=== PATIENT | female | born 1990 | race African-American/Black ===

== ENCOUNTER 2024-01-09 10:13 | Emergency (ER) | payer MEDICAID, OTHER ==
[~2024-01-09] VITALS: Ht 162.6 cm; Wt 82.0 kg
[~2024-01-09 10:13] MED LIST: PREN-88
[2024-01-09 10:15] VITALS: TEMP 98.2; O2SAT 96
[2024-01-09 11:26] LABS: BASOPHILS % 0.3 % (0.0-2.0); EOSINOPHILS % 1.4 % (0.0-5.0); HEMATOCRIT. 36.2 % (36.0-48.0); HEMOGLOBIN. 11.9 g/dL (12.0-16.0); LYMPHOCYTES % 14.9 % (20.0-50.0); MEAN CORPUSCULAR HEMOGLOBIN 28.4 pg (28.0-32.0); MEAN CORPUSCULAR HGB CONC 32.9 g/dL (31.0-37.0); MEAN CORPUSCULAR VOLUME 86.3 fL (81.0-99.0); MEAN PLATELET VOLUME 8.7 fl (7.4-10.4); MONOCYTES % 3.9 % (2.0-8.0); NEUTROPHILS % 79.5 % (40.0-76.0); PLATELET 277 x1000/uL (130-400); RED BLOOD CELL COUNT 4.19 mill/uL (4.2-5.4); RED CELL DISTRIBUTION WIDTH 13.9 % (11.6-14.6); WHITE BLOOD COUNT 11.4 x1000/uL (4.5-11.0)
[2024-01-09 11:27] LABS: CLARITY URINE CLEAR (CLEAR); COLOR URINE ORANGE (YELLOW); GLUCOSE URINE NEGATIVE (NEGATIVE); KETONES URINE NEGATIVE (NEGATIVE); LEUKOCYTE ESTERASE URINE TRACE (NEGATIVE); NITRITE URINE NEGATIVE (NEGATIVE); OCCULT BLOOD URINE 3+ (NEGATIVE); PROTEIN URINE 1+ (NEGATIVE); SPECIFIC GRAVITY URINE 1.018 (1.005-1.030)
[2024-01-09 11:35] LABS: CARBON DIOXIDE 20 mEq/L (21-32); CHLORIDE 106 mEq/L (98-107); POTASSIUM 3.5 mEq/L (3.5-5.1); SODIUM 136 mEq/L (136-145)
[2024-01-09 11:37] LABS: CALCIUM 9.4 mg/dL (8.7-10.4)
[2024-01-09 11:40] LABS: HCG SCREEN POSITIVE
[2024-01-09 11:42] LABS: CREATININE 0.7 mg/dL (0.6-1.0); GLUCOSE 150 mg/dL (70-105)
[2024-01-09 12:39] LABS: B-HCG QUANTITATIVE 4319 mIU/mL (<3); UREA NITROGEN BLOOD < 5 mg/dL (9-23)
[2024-01-09 12:52] LABS: RBC URINE TNTC /hpf (0-2); SQUAMOUS EPITHELIAL CELL URINE 1+ /lpf (RARE/1+)
[2024-01-09 12:53] LABS: BACTERIA URINE TRACE; WBC URINE 0-2 /hpf (0-2)
[2024-01-09 12:54] LABS: MUCUS URINE 2+ /lpf (< = 2+)
[2024-01-09] MEDS ORDERED: CEPH500C2 MT (16:02)
[2024-01-09 16:41] VITALS: BP 120/70; PULSE 80; RESP 15
== END 2024-01-09 16:42 | disposition home or self-care (01) ==
LOC: ER 10:27
DX: O03.9 Complete or unspecified spontaneous abortion without complication (principal); O26.891 Other specified pregnancy related conditions, first trimester; R10.9 Unspecified abdominal pain; Z3A.10 10 weeks gestation of pregnancy
CPT/HCPCS: 36415; 76801; 80048; 81003; 81025; 84702; 84703; 85025; 86850; 86900; 99284

== ENCOUNTER 2024-01-09 21:14 | Inpatient (IN) | payer MEDICAID ==
[~2024-01-09] VITALS: Ht 162.6 cm; Wt 99.3 kg
[~2024-01-09 21:14] MED LIST changes: +CEPH500C2 MT
[2024-01-09 22:59] LABS: DIFFERENTIAL COMMENT 1; HEMATOCRIT. 34.3 % (36.0-48.0); HEMOGLOBIN. 11.5 g/dL (12.0-16.0); MEAN CORPUSCULAR HEMOGLOBIN 28.5 pg (28.0-32.0); MEAN CORPUSCULAR HGB CONC 33.3 g/dL (31.0-37.0); MEAN CORPUSCULAR VOLUME 85.3 fL (81.0-99.0); MEAN PLATELET VOLUME 9.1 fl (7.4-10.4); PLATELET 282 x1000/uL (130-400); RED BLOOD CELL COUNT 4.03 mill/uL (4.2-5.4); RED CELL DISTRIBUTION WIDTH 14.1 % (11.6-14.6); WHITE BLOOD COUNT 15.8 x1000/uL (4.5-11.0)
[2024-01-09] MEDS: MORPHINE SULFATE 4 MG/ML INJ (FOR IV/IM USE) IV ONE (23:03)
[2024-01-09] MEDS: METOCLOPRAMIDE HCL 10MG/2ML VIAL IV ONE (23:04)
[2024-01-09 23:05] LABS: CHLORIDE 106 mEq/L (98-107); POTASSIUM 3.8 mEq/L (3.5-5.1); SODIUM 135 mEq/L (136-145)
[2024-01-09 23:06] LABS: CARBON DIOXIDE 23 mEq/L (21-32)
[2024-01-09 23:07] LABS: CALCIUM 9.7 mg/dL (8.7-10.4)
[2024-01-09 23:11] LABS: CREATININE 0.7 mg/dL (0.6-1.0); GLUCOSE 141 mg/dL (70-105)
[2024-01-09 23:13] LABS: ALANINE AMINOTRANSFERASE 12 IU/L (10-49); ALBUMIN 4.4 g/dL (3.2-4.8); ASPARTATE AMINOTRANSFERASE 15 IU/L (<34)
[2024-01-09 23:14] LABS: BILIRUBIN DIRECT 0.2 mg/dL (<=3.0); BILIRUBIN TOTAL 0.5 mg/dL (0.1-1.0); PLATELET ESTIMATE NORMAL; PROTEIN TOTAL 7.1 g/dL (6.0-8.3)
[2024-01-09 23:27] LABS: B-HCG QUANTITATIVE 2807 mIU/mL (<3); UREA NITROGEN BLOOD < 5 mg/dL (9-23)
[2024-01-10] MEDS: MISOPROSTOL 200MCG TABLET PO ONE (01:45)
[2024-01-10] MEDS: MORPHINE SULFATE 4 MG/ML INJ (FOR IV/IM USE) IV ONE (02:20)
[2024-01-10] MEDS: LACTATED RINGERS 1,000 ML IV SCH (02:31)
[2024-01-10 08:00] VITALS: BP 110/58; PULSE 68; RESP 18; TEMP 97.4
[2024-01-10 08:10] VITALS: BP 110/58; PULSE 68; RESP 18; TEMP 97.4
[2024-01-10] MEDS ORDERED: IPRATROPIUM/ALBUTEROL 0.5-3(2.5)MG/3ML NEB HHN PRN (08:15)
[2024-01-10] MEDS ORDERED: ONDANSETRON HCL 4MG/2ML INJ IV PRN (08:15)
[2024-01-10] MEDS ORDERED: CLONIDINE 0.1MG TABLET PO PRN (08:15)
[2024-01-10] MEDS ORDERED: NALOXONE HCL 0.4MG/ML VIAL IV PRN (08:30)
[2024-01-10] MEDS: KETOROLAC 15MG/ML VIAL IV PRN (08:41)
[2024-01-10 12:00] VITALS: BP 111/48; PULSE 69; RESP 18; TEMP 98
[2024-01-10] MEDS: CEFTRIAXONE 1GM/50ML 50 ML IV SCH (12:23)
[2024-01-10] MEDS: SODIUM CHLORIDE 0.9% 1,000 ML IV ONE (12:24)
[2024-01-10 13:04] LABS: CLARITY URINE CLEAR (CLEAR); COLOR URINE ORANGE (YELLOW); GLUCOSE URINE NEGATIVE (NEGATIVE); KETONES URINE NEGATIVE (NEGATIVE); LEUKOCYTE ESTERASE URINE 1+ (NEGATIVE); NITRITE URINE NEGATIVE (NEGATIVE); OCCULT BLOOD URINE 3+ (NEGATIVE); PROTEIN URINE TRACE (NEGATIVE); SPECIFIC GRAVITY URINE 1.012 (1.005-1.030)
[2024-01-10] MEDS: HYDROCODONE/ACETAMINOPHEN 5/325MG TABLET PO PRN (13:21)
[2024-01-10 13:24] LABS: RBC URINE TNTC /hpf (0-2); SQUAMOUS EPITHELIAL CELL URINE 1+ /lpf (RARE/1+)
[2024-01-10 13:25] LABS: BACTERIA URINE 1+; YEAST URINE NONE SEEN
[2024-01-10 16:00] VITALS: BP 100/46; PULSE 65; RESP 18; TEMP 97.9
[2024-01-10] MEDS: DOCUSATE SODIUM 100MG CAPSULE PO PRN (17:16)
[2024-01-10 20:00] VITALS: BP 118/33; PULSE 76; RESP 20; TEMP 97.3
[2024-01-10 22:09] LABS: BASOPHILS % 0.3 % (0.0-2.0); EOSINOPHILS % 1.5 % (0.0-5.0); HEMATOCRIT. 31.9 % (36.0-48.0); HEMOGLOBIN. 10.5 g/dL (12.0-16.0); LYMPHOCYTES % 26.1 % (20.0-50.0); MEAN CORPUSCULAR HEMOGLOBIN 28.5 pg (28.0-32.0); MEAN CORPUSCULAR HGB CONC 32.8 g/dL (31.0-37.0); MEAN CORPUSCULAR VOLUME 86.8 fL (81.0-99.0); MEAN PLATELET VOLUME 9.1 fl (7.4-10.4); MONOCYTES % 4.5 % (2.0-8.0); NEUTROPHILS % 67.6 % (40.0-76.0); PLATELET 246 x1000/uL (130-400); RED BLOOD CELL COUNT 3.68 mill/uL (4.2-5.4); WHITE BLOOD COUNT 9.8 x1000/uL (4.5-11.0)
[2024-01-10] MEDS: ACETAMINOPHEN 325MG TABLET PO PRN (22:16)
[2024-01-11] VITALS: BP 116/44; PULSE 81; RESP 19; TEMP 97.4
[2024-01-11 04:00] VITALS: BP 99/46; PULSE 65; RESP 20; TEMP 95.9
[2024-01-11] MEDS: GUAIFENESIN 200MG/10ML SUGAR FREE UDC PO PRN (05:33)
[2024-01-11 06:21] LABS: BASOPHILS % 0.4 % (0.0-2.0); EOSINOPHILS % 2.2 % (0.0-5.0); HEMATOCRIT. 29.5 % (36.0-48.0); HEMOGLOBIN. 9.7 g/dL (12.0-16.0); MEAN CORPUSCULAR HEMOGLOBIN 28.7 pg (28.0-32.0); MEAN CORPUSCULAR HGB CONC 32.9 g/dL (31.0-37.0); MEAN CORPUSCULAR VOLUME 87.1 fL (81.0-99.0); MONOCYTES % 4.6 % (2.0-8.0); NEUTROPHILS % 60.8 % (40.0-76.0); PLATELET 225 x1000/uL (130-400); RED BLOOD CELL COUNT 3.38 mill/uL (4.2-5.4); RED CELL DISTRIBUTION WIDTH 14.2 % (11.6-14.6); WHITE BLOOD COUNT 7.5 x1000/uL (4.5-11.0)
[2024-01-11 06:41] LABS: CARBON DIOXIDE 25 mEq/L (21-32); CHLORIDE 108 mEq/L (98-107); POTASSIUM 3.8 mEq/L (3.5-5.1); SODIUM 138 mEq/L (136-145)
[2024-01-11 06:42] LABS: CALCIUM 8.7 mg/dL (8.7-10.4)
[2024-01-11 06:45] LABS: B-HCG QUANTITATIVE 584 mIU/mL (<3)
[2024-01-11 06:46] LABS: CREATININE 0.9 mg/dL (0.6-1.0)
[2024-01-11 06:47] LABS: GLUCOSE 94 mg/dL (70-105); UREA NITROGEN BLOOD 6 mg/dL (9-23)
[2024-01-11 06:48] LABS: THYROID STIMULATING HORMONE 0.79 uIU/mL (0.55-4.78)
[2024-01-11 06:49] LABS: PHOSPHORUS 4.4 mg/dL (2.5-4.9)
[2024-01-11 08:00] VITALS: BP 114/60; PULSE 66; RESP 20; TEMP 98.1
[2024-01-11] MEDS: MAGNESIUM GLUCONATE 500MG TABLET PO SCH (08:45)
[2024-01-11] MEDS ORDERED: NAP5EC MT (09:34)
[2024-01-11] MEDS ORDERED: CEFP100T9 MT (09:34)
[2024-01-11] MEDS ORDERED: SENN-312 PO (09:34)
[2024-01-11 09:43] VITALS: BP 114/60; PULSE 66; TEMP 97.4; O2SAT 100
== END 2024-01-11 13:45 | disposition home or self-care (01) | DRG 564 ==
LOC: ER 21:14 → 7EST 01-10 01:42 → EDBEDREQ 01-10 01:50 → ER 01-10 05:19
PROVIDERS: ADMIT Preventive Medicine Clinical Informatics; ATTEND Preventive Medicine Clinical Informatics
DX: O03.9 Complete or unspecified spontaneous abortion without complication (principal); E66.9 Obesity, unspecified; N39.0 Urinary tract infection, site not specified; O23.40 Unspecified infection of urinary tract in pregnancy, unspecified trimester
CPT/HCPCS: 36415; 76830; 76856; 80048; 80076; 81003; 83735; 84100; 84439; 84443; 84702; 85025; 86850; 86900; 99285; C1893; J0696; J1885; J2270; J2765